=== PATIENT | male | born 1975 ===

== ENCOUNTER 2017-05-12 03:15 | Day surgery (SDC) | payer OTHER ==
[~2017-05-12] VITALS: Ht 188 cm; Wt 17.2 kg
[~2017-05-12 03:15] MED LIST: FEXO-67 PO; LOSA-57 PO; NAPR-724 PO; PIOG1TAB2 PO
[2017-05-12] MEDS: NORMOSOL R SOLN(*) 1000 ML BAG 1,000 ML IV PRN ×2 (08:22→12:30)
[2017-05-12 08:32] VITALS: BP 133/62
[2017-05-12] MEDS ORDERED: fentaNYL CITR 100 MCG/2 ML AMP ONE ×2 (08:59→12:26)
[2017-05-12] MEDS ORDERED: LIDOCAINE MPF 1% 5 ML VIAL ONE (09:00)
[2017-05-12] MEDS ORDERED: ROCURONIUM BROM 10 MG/ML 10 ML ONE (09:00)
[2017-05-12] MEDS ORDERED: ONDANSETRON 4 MG/2 ML VIAL ONE (09:00)
[2017-05-12] MEDS ORDERED: PROPOFOL EMUL(*) 10MG/ML 20 ML 20 ML ONE (09:00)
[2017-05-12] MEDS ORDERED: DEXAMETHASONE SOD PHOS 10MG/ML ONE (09:00)
[2017-05-12] MEDS ORDERED: KETOROLAC 30 MG/ML VIAL ONE (09:07)
[2017-05-12] MEDS ORDERED: ceFAZolin(*) 2GM/D5W 50ML 50 ML IVPB ONE (09:45)
[2017-05-12] MEDS ORDERED: LIDOCAINE/SOD BICARB 8.4% SYR ID ONE (09:45)
[2017-05-12] MEDS ORDERED: FAMOTIDINE 20 MG TAB PO ONE (09:45)
[2017-05-12] MEDS ORDERED: MIDAZOLAM 2 MG/2 ML VIAL IVP PRN (09:45)
[2017-05-12] MEDS ORDERED: BUPIVACAIN 0.25% INJ 50ML VIAL ONE (10:41)
[2017-05-12] MEDS ORDERED: NS(*) 0.9% 10 ML VIAL 10 ML ONE (10:41)
[2017-05-12] MEDS ORDERED: BUPIV/EPI 0.25% 1:200,000 50ML INFIL ONE (10:41)
[2017-05-12] MEDS ORDERED: MORPHINE 10 MG/ML SYR ONE (10:41)
[2017-05-12] MEDS ORDERED: LIDO/EPI 1% MDV 1:100,000 20ML INFIL ONE (10:42)
[2017-05-12] MEDS ORDERED: SUGAMMADEX SOD 500 MG/5 ML SDV ONE (12:09)
[2017-05-12] MEDS ORDERED: LACTATED RINGER 3000 ML BAG IR ONE (12:26)
[2017-05-12 13:10] VITALS: BP 132/52
[2017-05-12] MEDS ORDERED: APAP/HYDROCODONE 325/5 TAB PO PRN (13:40)
[2017-05-12] MEDS ORDERED: CEPH500T7 PO (13:41)
[2017-05-12] MEDS ORDERED: HYDR-4309 PO (13:44)
[2017-05-12 14:05] VITALS: BP 151/105
[2017-05-12 14:15] VITALS: BP 132/68
--- NOTE | 2017-05-13 18:08 | OPERATIVE REPORT 1 ---
EVENT DATE: May 12, 2017 SURGEON: Medardo Downs MD ANESTHESIOLOGIST: Jed Donnelly MD ANESTHESIA: LMA. LIFE SCIENTIST: DERRICK Solis PREOPERATIVE DIAGNOSES 1. Left knee lateral meniscus tear. 2. Left knee degenerative joint disease and chondromalacia. 3. Large loose body. POSTOPERATIVE DIAGNOSES 1. Left knee lateral meniscus tear. 2. Left knee degenerative joint disease and chondromalacia. 3. Large loose body. PROCEDURES PERFORMED 1. Left knee arthroscopy with partial lateral meniscectomy. 2. Massive loose body removal 2.5 cm x 1 cm through an accessory anterolateral portal. 3. Mechanical chondroplasty, patellofemoral and lateral compartment. ESTIMATED BLOOD LOSS Minimal. COMPLICATIONS None. DRAINS None. SPECIMENS None. IMPLANTS USED None. TOURNIQUET TIME See anesthesia record. HISTORY Mr. Alonso is a 42-year-old male with a history of left knee pain. He was seen and evaluated in the [facility] and found to have a tear of the lateral meniscus. There was a questionable large loose body. Following discussion of risks, benefits, alternatives, and possible complications of both surgical and nonsurgical intervention, he wished to proceed with surgical intervention. DESCRIPTION OF PROCEDURE The patient was brought to the operating room and placed on the operating table in the supine position. A proper timeout was performed identifying the patient , the limb of surgery, and surgical procedure. The patient was given preoperative IV antibiotics and underwent LMA anesthesia. A well-padded upper thigh tourniquet was placed on the left lower extremity. The left lower extremity was then prepped and draped in the sterile orthopedic fashion. Knee examination demonstrated negative Ebony's, negative anterior drawer, and negative posterior drawer. MCL and ACL were stable. Once complete, the leg was elevated, and the tourniquet brought up to 275 mmHg. A superomedial inflow port was established. The knee was insufflated. The distal lateral camera portal was established. The camera was placed intra-articularly. The suprapatellar pouch demonstrated some loose articular cartilage debris, but no major loose bodies. The medial gutter was clear. The lateral gutter demonstrated a massive loose body. The patella and trochlea demonstrated mostly grade III change throughout the entire lateral facet, medial facet, and trochlea mostly on the lateral side. The patella tracked centrally at 30 and 90 degrees engagement. The medial compartment was visualized. The medial portal was established under direct visualization. A probe was place intra- articularly. The medial meniscus demonstrated no tearing. The articular cartilage demonstrates mild grade I change. The ACL and PCL are probed and felt to be stable. The lateral compartment demonstrates complex tearing of the posterior horn and body of the lateral meniscus with radial and horizontal cleavage tears. There was also grade II to III chondral wear on the tibial side and grade II change on the femoral side. A chondroplasty was performed with a 4 mm shaver, and then the lateral meniscus tear was debrided with a combination of meniscal biters and mari until a nice smooth transition was obtained. The lateral gutter was visualized. An accessory anterolateral portal was established, and a large grasper was utilized to grasp the loose body as it was too large to remove with a normal grasper. This measured about 2.5 cm x 1 cm in width. It was a massive loose body. Once this was complete, chondroplasty was performed on the patella and trochlea until stable articular cartilage was obtained throughout. The posteromedial and posterolateral compartments of the knee were driven. There were no other obvious loose bodies present. A second look was performed throughout the entire knee. Once complete , all instrumentation was removed, and the knee was drained. Portal sites were closed with 3-0 Monocryl. Standard postoperative anesthetic cocktail was injected intra-articularly. Postoperative dressing and Cryo/Cuff were applied. Mr. Alonso tolerated the procedure well. He was extubated and transferred to the PACU in stable condition. He will be placed on my knee arthroscopy protocol and will follow up with me in 10 to 14 days. ELINA
== END 2017-05-12 13:10 | disposition home or self-care (01) ==
LOC: OR 03:15
PROVIDERS: ATTEND Orthopaedic Surgery
DX: S83.282A Other tear of lateral meniscus, current injury, left knee, initial encounter (principal); M23.42 Loose body in knee, left knee; M17.12 Unilateral primary osteoarthritis, left knee; E11.9 Type 2 diabetes mellitus without complications
CPT/HCPCS: 29881; 36416; 82948; J1100; J1885; J2001; J2270; J2405; J2704; J3010; J3490; J0690